=== PATIENT | female | born 1950 | race Caucasian/White ===

== ENCOUNTER → 2017-08-01 | Outpatient (CLI) | payer MEDICARE, BC ==
[~2017-08-01] MED LIST: ADVIL200 MG PO; ATIVAN 0.50.5 MG/TAB PO; BIOTIN1 MG PO; DESYREL 100MG100 MG PO; DESYREL 50MG50 MG PO; FOLIC ACID 40400 MCG PO; IMURAN 50MG TAB50 MG PO; LEVOXYL0.1 MG PO; LEVOXYL0.15 MG PO; MIRAPEX 0.0.125 MG/T PO; MIRAPEX0.25 MG PO; MULTIVITAMIN FO1 CAP PO; PREDNISONE20 MG PO; VITAMIN B121000 MCG PO; ZOCOR 20MG20 MG PO
== END ==
LOC: MC.RAD 07:32
DX: Z12.31 Encounter for screening mammogram for malignant neoplasm of breast (principal)

== ENCOUNTER → 2019-05-25 | Outpatient (CLI) | payer MEDICARE, BC | LOC: MC.RAD 09:06 | DX: Z12.31 Encounter for screening mammogram for malignant neoplasm of breast (principal) ==